=== PATIENT | male | born 1995 | race Native Hawaiian/Other Pacific Islander ===

== ENCOUNTER 2017-09-22 13:21 | Emergency (ER) | payer OTHER ==
[2017-09-22 13:26] VITALS: TEMP 97.3; O2SAT 98
[2017-09-22 15:12] LABS: BASO % 0.6 % (0.0-2.0); EOS # 0.1 K/uL (0.0-0.7); EOS % 1.4 % (0.0-4.0); LYMPH # 1.3 K/uL (1.0-4.3); MEAN CELL VOLUME 87.4 fl (80.0-94.0); MEAN CORPUSCULAR HEMOGLOBIN 29.1 pg (27.0-31.0); MEAN CORPUSCULAR HGB CONC 33.3 g/dL (33.0-37.0); MEAN PLATELET VOLUME 8.3 fl (7.2-11.7); MONO # 0.7 K/uL (0.0-0.8); NEUT # 5.5 K/uL (1.8-7.0); NRBC % 0.2 % (0.0-0.0); RBC 5.13 Mil/uL (4.40-5.90); WHITE BLOOD COUNT 7.7 K/uL (4.8-10.8)
--- NOTE | 2017-09-22 15:12 | ED PDOC ---
HPI: Chest Pain Time Seen by Provider: 09/22/17 13:33 Chief Complaint (Nursing): Chest Pain Chief Complaint (Provider): Left Sided Chest Pain History Per: Patient History/Exam Limitations: no limitations Onset/Duration Of Symptoms: Days (x3) Current Symptoms Are (Timing): Still Present Additional Complaint(s): Ita Torres is a 22 year old male with no past medical history that presents to the ED with a chief complaint of intermittent left-sided chest pain that he has been experiencing for the past 3 days. Patient denies any leg pain, leg swelling , shortness of breath, nausea, cough, or palpitations. He additionally denies any recent travel or family history of AR. Past Medical History Reviewed: Historical Data, Nursing Documentation, Vital Signs Vital Signs: Last Vital Signs Temp 97.3 F L 09/22/17 13:25 Pulse 73 09/22/17 18:25 Resp 14 09/22/17 18:25 BP 117/68 09/22/17 18:25 Pulse Ox 98 09/22/17 18:25 - Medical History PMH: No Chronic Diseases - Surgical History Surgical History: No Surg Hx - Family History Family History: States: Unknown Family Hx Denies: AR - Social History Current smoker - smoking cessation education provided: No Alcohol: None - Allergies Allergies/Adverse Reactions: Allergies Allergy/AdvReac Type Severity Reaction Status Date / Time No Known Allergies Allergy Verified 09/22/17 13:25 CHARLI Risk Score for UA/NSTEMI - CHARLI Risk Score Age > 64: NO 3 or more CAD Risk Factors: NO Known CAD (Stenosis greater than 50%): NO Aspirin use in past 7 days: NO Severe Angina: NO EKG ST changes greater than 0.5mm: NO Positive Cardiac Marker: NO CHARLI Score: 0 Risk %: 5% Review of Systems Cardiovascular: Positive for: Chest Pain (left sided). Negative for: Palpitations Respiratory: Negative for: Cough, Shortness of Breath Gastrointestinal: Negative for: Nausea Musculoskeletal: Negative for: Leg Pain (denies leg pain or swellin g) Physical Exam - Reviewed Nursing Documentation Reviewed: Yes Vital Signs Reviewed: Yes - Physical Exam Appears: Positive for: Non-toxic, No Acute Distress Head Exam: Positive for: ATRAUMATIC, NORMOCEPHALIC Skin: Positive for: Normal Color, Warm Eye Exam: Positive for: Normal appearance, EOMI, PERRL Neck: Positive for: Normal, Supple Cardiovascular/Chest: Positive for: Regular Rate, Rhythm. Negative for: Murmur Respiratory: Positive for: Normal Breath Sounds. Negative for: Wheezing Gastrointestinal/Abdominal: Positive for: Normal Exam, Soft. Negative for: Tenderness Back: Positive for: Normal Inspection. Negative for: L CVA Tenderness, R CVA Tenderness Extremity: Positive for: Normal ROM. Negative for: Tenderness, Pedal Edema, Calf Tenderness, Swelling Neurologic/Psych: Positive for: Alert, Oriented. Negative for: Motor/Sensory Deficits - Laboratory Results Result Diagrams: 09/22/17 15:00 09/22/17 15:00 - ECG Interpretation Of ECG: Sinus jacquelyn @ 52, no ST-T changes. O2 Sat by Pulse Oximetry: 98 (RA) Pulse Ox Interpretation: Normal Medical Decision Making Medical Decision Making: Impression: Left-Sided Chest Pain Plan: * Chest X-Ray * CMP * CBC * PTT * PT * D-Dimer * Troponin I * Reevaluation Accession No. : [id number] Patient Name / ID : RONDA LUNA / [id number] Exam Date : 09/22/2017 15:00:22 ( Approved ) Study Comment : Sex / Age : M / 22Y Creator : israel shelton Dictator : Alla Valdes MD Cigar Head Piercer : Crm Campaign Manager : Alla Valdes MD Approver2 : Report Date : 09/22/2017 15:42:12 My Comment : HISTORY: CP COMPARISON: No prior. TECHNIQUE: Chest PA and lateral FINDINGS: LUNGS: No active pulmonary disease. PLEURA: No significant pleural effusion identified. No pneumothorax apparent. CARDIOVASCULAR: Normal. OSSEOUS STRUCTURES: No significant abnormalities. VISUALIZED UPPER ABDOMEN: Normal. OTHER FINDINGS: None. IMPRESSION: No active disease. Scribe Attestation: Documented by Betina Jane, acting as a scribe for Gauri Aquino MD. Provider Scribe Attestation: All medical record entries made by the Scribe were at my direction and personally dictated by me. I have reviewed the chart and agree that the record accurately reflects my personal performance of the history, physical exam, medical decision making, and the department course for this patient. I have also personally directed, reviewed, and agree with the discharge instructions and disposition. Disposition - Clinical Impression Clinical Impression: Anxiety - Disposition Referrals: [facility] [Outside] Disposition: Transfer of Care Disposition Time: 15:00 Condition: STABLE Instructions: Anxiety (ED) Forms: [employer] (Czech) Patient Signed Over To: Soren Arcos
[2017-09-22 15:29] LABS: ALB/GLOB RATIO 1.5 (1.0-2.1); ALBUMIN 4.8 g/dL (3.5-5.0); ALT/SGPT 33 U/L (21-72); AST/SGOT 41 U/L (17-59); BLOOD UREA NITROGEN 12 mg/dl (9-20); CALCIUM 9.6 mg/dL (8.4-10.2); GFR AFRICAN-AMERICAN > 60; GFR NON-AFRICAN AMERICAN > 60; PARTIAL THROMBOPLASTIN TIME 35.9 Seconds (25.6-37.1); PROTHROMBIN TIME 11.5 Seconds (9.8-13.1)
--- NOTE | 2017-09-22 15:55 | RAD ---
HISTORY: CP COMPARISON: No prior. TECHNIQUE: Chest PA and lateral FINDINGS: LUNGS: No active pulmonary disease. PLEURA: No significant pleural effusion identified. No pneumothorax apparent. CARDIOVASCULAR: Normal. OSSEOUS STRUCTURES: No significant abnormalities. VISUALIZED UPPER ABDOMEN: Normal. OTHER FINDINGS: None. IMPRESSION: No active disease.
[2017-09-22] MEDS ORDERED: Iohexol 300 100 ML IJ ONE (16:41)
[2017-09-22] MEDS ORDERED: Sodium Chloride 0.9% 50 ML IV ONE (16:42)
[2017-09-22] MEDS ORDERED: Iodixanol 320 mg/ml 50 ml Sol IV ONE (16:45)
--- NOTE | 2017-09-22 17:50 | CT ---
PROCEDURE: CT Chest with contrast (Pulmonary Angiogram) HISTORY: Chest pain. COMPARISON: None available. TECHNIQUE: Axial computed tomography images were obtained of the chest in the pulmonary arterial phase of enhancement. Coronal and sagittal reformatted images were created and reviewed. Maximum intensity projection (MIP) reconstructed images in the following planes: Axial projection only Intravenous contrast dose: 80 cc Visipaque 320. Mean Hounsfield unit values in the main pulmonary artery: 311.72 Radiation dose: Total exam DLP = 323.67 mGy-cm. This CT exam was performed using one or more of the following dose reduction techniques: Automated exposure control, adjustment of the mA and/or kV according to patient size, and/or use of iterative reconstruction technique. FINDINGS: PULMONARY ARTERIES: Unremarkable. No pulmonary embolism. AORTA: No acute findings. No thoracic aortic aneurysm. LUNGS: Unremarkable. No nodule, mass or pulmonary consolidation. PLEURAL SPACES: Unremarkable. No effusion or pneuomothorax. HEART: Unremarkable. No cardiomegaly. No significant pericardial effusion. LYMPH NODES: No lymphadenopathy. BONES, CHEST WALL: Unremarkable. No fracture or destructive lesion OTHER FINDINGS: Unremarkable. IMPRESSION: Unremarkable CT pulmonary angiogram. No pulmonary embolus.
--- NOTE | 2017-09-22 18:19 | ED PDOC ---
- Laboratory Results Result Diagrams: 09/22/17 15:00 09/22/17 15:00 - ECG O2 Sat by Pulse Oximetry: 98 (RA) Disposition - Clinical Impression Clinical Impression: Anxiety - POA Present On Arrival: None - Disposition Referrals: [facility] [place] [Outside] Disposition: Routine/Home Disposition Time: 18:18 Condition: FAIR Instructions: Anxiety (ED) Forms: [employer] (Bulgarian)
[2017-09-22 18:48] VITALS: BP 117/68; PULSE 73; RESP 14
== END 2017-09-22 18:25 | disposition home or self-care (01) ==
LOC: H.ER 13:21
DX: F41.9 Anxiety disorder, unspecified (principal)
CPT/HCPCS: 71046; 71275; 80053; 84484; 85025; 85378; 85610; 85730; 99283; Q9967

== ENCOUNTER 2018-03-28 15:00 | Emergency (ER) | payer OTHER ==
[2018-03-28 15:10] VITALS: O2SAT 100
--- NOTE | 2018-03-28 15:35 | ED PDOC ---
HPI: Psych/Substance Abuse Time Seen by Provider: 03/28/18 15:11 Chief Complaint (Nursing): Anxiety Chief Complaint (Provider): Anxiety History Per: Patient History/Exam Limitations: no limitations Onset/Duration Of Symptoms: Days (past few weeks) Current Symptoms Are (Timing): Intermittent Episodes Additional Complaint(s): 22 year old male presents to the ED for evaluation of anxiety. Patient reports that for the past few weeks he has been feeling anxious, and when laying down to sleep at night, experiences brief palpitations and shortness of breath. He states he has three issues stressing him out which are: his father is sick back in [place], he recently finished his summer courses at school, and his girlfriend who he has not seen in a while is coming to visit in a couple days. He denies personal or family hx of anxiety, or taking any medications prior to arrival. Patient denies symptoms at present. (-) SI/HI (-) auditory or visual hallucinations (-) history of mental illness. PMD: none provided Past Medical History Reviewed: Historical Data, Nursing Documentation, Vital Signs Vital Signs: Last Vital Signs Temp 98.5 F 03/28/18 15:08 Pulse 59 L 03/28/18 15:08 Resp 16 03/28/18 15:08 BP 131/84 03/28/18 15:08 Pulse Ox 100 03/28/18 15:08 - Medical History PMH: No Chronic Diseases - Surgical History Surgical History: No Surg Hx - Family History Family History: States: Unknown Family Hx - Social History Current smoker - smoking cessation education provided: No Alcohol: None Drugs: Denies - Allergies Allergies/Adverse Reactions: Allergies Allergy/AdvReac Type Severity Reaction Status Date / Time No Known Allergies Allergy Verified 09/22/17 13:25 Review of Systems ROS Statement: Except As Marked, All Systems Reviewed And Found Negative Cardiovascular: Positive for: Palpitations (brief) Respiratory: Positive for: Shortness of Breath (brief) Psych: Positive for: Anxiety Physical Exam - Reviewed Nursing Documentation Reviewed: Yes Vital Signs Reviewed: Yes - Physical Exam Comments: GENERAL APPEARANCE: Patient is awake, alert, oriented x 3, in no acute distress , resting comfortably. SKIN: Warm, dry; (-) cyanosis EYES: (-) conjunctival pallor, (-) scleral icterus, (-) nystagmus. ENMT: Mucous membranes moist. Airway patent: (-) stridor. NECK: Supple, FROM HEART AND CARDIOVASCULAR: (-) irregularity; (-) murmur CHEST AND RESPIRATORY: (-) rales, (-) rhonchi, (-) wheezes; breath sounds equal. Respirations even and nonlabored. ABDOMEN: Soft, (-) distention, (-) tenderness, (-) guarding. NEURO AND PSYCH: Mental status as above. chemist water purification: Intact. Pupils equal and reactive ; EOMI; (-) facial asymmetry; tongue and uvula midline. Strength symmetric. Speech clear, gait steady. - ECG O2 Sat by Pulse Oximetry: 100 (RA) Pulse Ox Interpretation: Normal Medical Decision Making Medical Decision Making: Time: 1509 Initial Impression: anxiety Initial Plan: --EKG --Crisis eval --CXR --Re-evaluation 1529 EKG: NSR at 61 bpm, (-) acute ST changes, and QTc at 396, as read by ALBER. 1554 CXR : NAD, as read by ALBER. Patient advised that official radiology read of XR is still pending and will call the patient if there is any discrepancy within 24 hours. 1600 Per crisis evaluation, patient to be discharged with the diagnosis of anxiety per Dr Zuñiga. Patient to follow up outpatient with [facility]. On re-evaluation, patient offers no complaints. On exam, patient remains AAOx3, in no acute distress. Neck is supple, lungs CTA, cardiac RRR, abdomen is soft and non-tender, neuro exam shows no focal findings. VSS, stable for discharge. Diagnostic results d/w the patient in great detail. Dx of anxiety d/w the patient. Based on history, exam and diagnostic results plan will be for discharge and outpatient follow up as directed by crisis. Return to the emergency room at any time for any new or worsening symptoms. Patient states he fully agrees with and understands discharge instructions. States that he agrees with the plan and disposition. Verbalized and repeated discharge instructions and plan. I have given the patient opportunity to ask any additional questions. Scribe Attestation: Documented by Randa Teran acting as a scribe for Shelia Cesar PA-C. Provider Scribe Attestation: All medical record entries made by the Scribe were at my direction and personally dictated by me. I have reviewed the chart and agree that the record accurately reflects my personal performance of the history, physical exam, medical decision making, and the department course for this patient. I have also personally directed, reviewed, and agree with the discharge instructions and disposition. Disposition - Clinical Impression Clinical Impression: Anxiety - Patient ED Disposition Is Patient to be Admitted: No Counseled Patient/Family Regarding: Studies Performed, Diagnosis, Need For Followup - Disposition [facility]errals[facility]] Disposition: Routine/Home Disposition Time: 16:05 Condition: STABLE Additional Instructions: FOLLOW UP WITH [facility] FOR FURTHER EVALUATION. RETURN TO ED WITH ANY NEW OR WORSENING SYMPTOMS. Instructions: Anxiety, Adult (DC) Forms: [employer] (Arabic) Print Language: PERSIAN - POA Present On Arrival: None
[2018-03-28 16:30] VITALS: BP 120/78; PULSE 78; RESP 18; TEMP 98
--- NOTE | 2018-03-29 07:59 | RAD ---
Date of service: 03/28/2018 HISTORY: chest pain, SOB COMPARISON: No prior. TECHNIQUE: Chest PA and lateral FINDINGS: LUNGS: No active pulmonary disease. PLEURA: No significant pleural effusion identified. No pneumothorax apparent. CARDIOVASCULAR: Normal. OSSEOUS STRUCTURES: No significant abnormalities. VISUALIZED UPPER ABDOMEN: Normal. OTHER FINDINGS: None. IMPRESSION: No active disease.
--- NOTE | 2018-03-29 08:46 | CARD ---
APPROVED REPORT Date of service: 03/28/2018 <Conclusion> Normal sinus rhythm with sinus arrhythmia Normal ECG
== END 2018-03-28 16:30 | disposition home or self-care (01) ==
LOC: H.ER 15:00
DX: F41.9 Anxiety disorder, unspecified (principal); R00.2 Palpitations

== ENCOUNTER 2018-06-09 18:14 | Emergency (ER) | payer OTHER ==
[2018-06-09 18:52] VITALS: O2SAT 98
--- NOTE | 2018-06-09 19:07 | ED PDOC ---
HPI: CCC, URI, Sore Throat Time Seen by Provider: 06/09/18 18:24 Chief Complaint (Nursing): ENT Problem Chief Complaint (Provider): ENT Problem History Per: Patient History/Exam Limitations: no limitations Onset/Duration Of Symptoms: Days (x2-3) Current Symptoms Are (Timing): Still Present Additional Complaint(s): 23 year old male presents to ED with complaints of a sore throat and difficulty sleeping for the last 2-3 days. He denies any fever, chills, cough, congestion, skin rash, nausea, vomiting, diarrhea, dysuria, back or flank pain. Patient has a Hx of a small kidney stone 6 years ago and additionally reports some redness in his urine today but unsure if it is blood. PMD: none provided Past Medical History Reviewed: Historical Data, Nursing Documentation, Vital Signs Vital Signs: Last Vital Signs Temp 98.8 F 06/09/18 18:46 Pulse 82 06/09/18 18:46 Resp 16 06/09/18 18:46 BP 133/88 06/09/18 18:46 Pulse Ox 98 06/09/18 18:46 - Medical History PMH: Denies: Diabetes, Hepatitis, HIV, HTN, Seizures, Sexually Transmitted Disease - Family History Family History: States: Unknown Family Hx Denies: ID - Allergies Allergies/Adverse Reactions: Allergies Allergy/AdvReac Type Severity Reaction Status Date / Time No Known Allergies Allergy Verified 06/09/18 18:46 Review of Systems ROS Statement: Except As Marked, All Systems Reviewed And Found Negative Constitutional: Positive for: Malaise (tired). Negative for: Fever, Chills ENT: Positive for: Throat Pain. Negative for: Nose Congestion Respiratory: Negative for: Cough Gastrointestinal: Negative for: Nausea, Vomiting, Diarrhea Genitourinary Male: Positive for: Hematuria. Negative for: Dysuria Musculoskeletal: Negative for: Back Pain (or flank pain) Skin: Negative for: Rash Physical Exam - Reviewed Nursing Documentation Reviewed: Yes Vital Signs Reviewed: Yes - Physical Exam Appears: Positive for: Non-toxic, No Acute Distress Eye Exam: Positive for: EOMI, Normal appearance, PERRL ENT: Positive for: Normal ENT Inspection, TM Is/Are (non-erythematous and non- bulging), Pharyngeal Erythema (mild). Negative for: Tonsillar Exudate, Tonsillar Swelling Cardiovascular/Chest: Positive for: Regular Rate, Rhythm, Chest Non Tender Respiratory: Positive for: Normal Breath Sounds. Negative for: Wheezing, Respiratory Distress Gastrointestinal/Abdominal: Positive for: Normal Exam, Soft. Negative for: Tenderness Back: Positive for: Normal Inspection. Negative for: L CVA Tenderness, R CVA Tenderness Neurologic/Psych: Positive for: Alert, Oriented. Negative for: Motor/Sensory Deficits - Laboratory Results Result Diagrams: 06/09/18 20:22 06/09/18 20:22 - ECG O2 Sat by Pulse Oximetry: 98 (RA) Pulse Ox Interpretation: Normal Medical Decision Making Medical Decision Making: Time: 1899 Initial Plan: * Urine dipstick * Influenza AB * Rapid strep Time: 1938 --Negative for strep or influenza. Gross examination of urine appears tea-color as per provider. CT ABD/pelvis and labs additionally ordered for further evaluation of hematuria. Time: 2045 --CT ABD/pelvis FINDINGS: LUNG BASES: The lung bases appear clear. No pleural effusions are seen. LIVER: Unremarkable. GALLBLADDER AND BILE DUCTS: The gallbladder appears within normal limits. No radioopaque gallstones are seen. No biliary ductal dilatation is evident. PANCREAS: Unremarkable. SPLEEN: Unremarkable. ADRENAL GLANDS: Unremarkable. KIDNEYS, URETERS, AND BLADDER: The kidneys appear within normal limits. There is no hydronephrosis or hydroureter. No urinary calculi are seen. STOMACH AND BOWEL: Unremarkable appearance of the stomach and bowel. No evidence of bowel obstruction. No evidence suggesting enteritis or colitis. APPENDIX: No evidence of acute appendicitis on CT examination. PERITONEUM: No free fluid. No free air. LYMPH NODES: No lymphadenopathy is evident. REPRODUCTIVE: Unremarkable as visualized. VASCULATURE: No evidence of abdominal aortic aneurysm. BONES: No aggressive appearing osseous lesion. No acute osseous pathology evident. IMPRESSION: No acute intra-abdominal or pelvic abnormality. Time: 2153 --[employer] tool operator ([employer] #[id number]) used to relay all results to patient. Provider recommends urology evaluation as labs and imaging are not indicative for infection or emergent intervention. Patient admits to ingesting a deep red fruit last night, unsure of the Congolese translation, but not of large quantities. Patient is medically stable and requires no further treatment in the ED at this time. Counseling was provided and all questions were answered regarding diagnosis. There is agreement to discharge plan. Return if symptoms persist or worsen but is to f/u with Dr. Mckoy, (urology customer service sales consultant), for further eval of hematuria. ----- Scribe Attestation: Documented by Vangie Bueno, acting as a scribe for Homero Crisostomo PA-C. Provider Scribe Attestation: All medical record entries made by the Scribe were at my direction and perso deepali dictated by me. I have reviewed the chart and agree that the record accurately reflects my personal performance of the history, physical exam, medical decision making, and the department course for this patient. I have also personally directed, reviewed, and agree with the discharge instructions and disposition. Disposition - Clinical Impression Clinical Impression: Hematuria - Patient ED Disposition Is Patient to be Admitted: No - Disposition Referrals: Bobby [facility]ckoy [facility] [Medical Doctor[facility] [Outside] Disposition: Routine/Home Disposition Time: 22:08 Condition: STABLE Additional Instructions: FOLLOW UP WITH UROLOGIST FOR FURTHER EVALUATION WITHOUT FAIL JEREMY BOND, thank you for letting us take care of you today. Your provider was Guille Kinsey MD and you were treated for THROAT PAIN. The emergency medical care you received today was directed at your acute symptoms. If you were prescribed any medication, please fill it and take as directed. It may take several days for your symptoms to resolve. Return to the Emergency Department if your symptoms worsen, do not improve, or if you have any other problems. Please contact your doctor or call one of the physicians/clinics you have been referred to that are listed on the Patient Visit Information form that is included in your discharge packet. Bring any paperwork you were given at discharge with you along with any medications you are taking to your follow up visit. Our treatment cannot replace ongoing medical care by a primary care provider outside of the emergency department. Thank you for allowing the [facility] team to be part of your care today. If you had an X-Ray or CT scan: A Radiologist will review the ED reading if any change in treatment is needed we will contact you. If you had a blood, urine, or wound culture: It will take several days for the results, if any change in treatment is needed we will contact you. If you had an STI test: It will take 48 hours for the results. Please call after 1 week if you have not heard back. Instructions: Blood in the Urine (Hematuria), Adult (DC) Forms: [employer] (Congolese)
[2018-06-09 19:59] LABS: URINE AMORPHOUS SEDIMENT RARE /ul (<OCC); URINE BACTERIA RARE (<OCC); URINE BILIRUBIN NEGATIVE (NEGATIVE); URINE BLOOD LARGE (NEGATIVE); URINE CLARITY SLIGHTY-CLOUDY (Clear); URINE COLOR YELLOW (YELLOW); URINE GLUCOSE (UA) NEG (Normal); URINE LEUKOCYTE ESTERASE NEG Leu/uL (Negative); URINE PROTEIN 30 mg/dL (NEGATIVE); URINE UROBILINOGEN 0.2-1.0 mg/dL (0.2-1.0)
[2018-06-09 20:25] LABS: BASO # 0.1 K/uL (0.0-0.2); BASO % 0.4 % (0.0-2.0); EOS # 0.2 K/uL (0.0-0.7); EOS % 0.9 % (0.0-4.0); HEMOGLOBIN 15.4 g/dL (12.0-18.0); LYMPH # 2.1 K/uL (1.0-4.3); LYMPH % 12.4 % (20.0-40.0); MEAN CELL VOLUME 88.1 fl (80.0-94.0); MEAN CORPUSCULAR HEMOGLOBIN 30.1 pg (27.0-31.0); MEAN CORPUSCULAR HGB CONC 34.2 g/dL (33.0-37.0); MEAN PLATELET VOLUME 8.5 fl (7.2-11.7); MONO # 0.7 K/uL (0.0-0.8); MONO % 4.3 % (0.0-10.0); NEUT # 13.7 K/uL (1.8-7.0); RBC 5.12 Mil/uL (4.40-5.90); RED CELL DISTRIBUTION WIDTH 13.4 % (11.5-14.5); WHITE BLOOD COUNT 16.7 K/uL (4.8-10.8)
[2018-06-09 20:37] LABS: ALB/GLOB RATIO 1.3 (1.0-2.1); ALBUMIN 4.7 g/dL (3.5-5.0); ALT/SGPT 38 U/L (21-72); AST/SGOT 25 U/L (17-59); BLOOD UREA NITROGEN 28 mg/dl (9-20); CALCIUM 9.5 mg/dL (8.4-10.2); GFR NON-AFRICAN AMERICAN > 60
[2018-06-09 22:36] VITALS: BP 126/78; PULSE 70; RESP 18; TEMP 98.4
--- NOTE | 2018-06-10 12:00 | CT ---
Date of service: 06/09/2018 PROCEDURE: CT Abdomen and Pelvis without intravenous contrast HISTORY: hematuria COMPARISON: None. TECHNIQUE: CT scan of the abdomen and pelvis was performed without administration of intravenous contrast. Oral contrast was not administered. Coronal and sagittal reformatted images were obtained. . Radiation dose: Total exam DLP = 335.19 mGy-cm. This CT exam was performed using one or more of the following dose reduction techniques: Automated exposure control, adjustment of the mA and/or kV according to patient size, and/or use of iterative reconstruction technique. FINDINGS: LOWER THORAX: The visualized lungs are clear. LIVER: Normal in size. No intrahepatic ductal dilatation. GALLBLADDER AND BILE DUCTS: No calcified gallstones. No biliary dilatation PANCREAS: Normal in size. No ductal dilatation. SPLEEN: Normal in size. ADRENALS: Normal in size. No discrete nodule. KIDNEYS AND URETERS: Normal in size without nephrolithiasis. No hydronephrosis. VASCULATURE: No aortic aneurysm. BOWEL: The small bowel loops are normal in caliber. The colon is normal in size. No bowel dilatation or wall thickening. No bowel obstruction. APPENDIX: Normal appendix. PERITONEUM: No free fluid. No free air. LYMPH NODES: No enlarged lymph nodes. BLADDER: Well distended and grossly normal in appearance. REPRODUCTIVE: The prostate gland is normal in size. BONES: No acute fracture. Within normal limits for the patient's age. OTHER FINDINGS: None. IMPRESSION: No acute abdominal or pelvic abnormality. A preliminary report was provided by Ad Summos.
== END 2018-06-09 22:36 | disposition home or self-care (01) ==
LOC: H.ER 18:14
DX: J02.9 Acute pharyngitis, unspecified (principal); R31.9 Hematuria, unspecified